=== PATIENT | female | born 1970 | race African-American/Black ===

== ENCOUNTER 2018-06-15 11:38 | Inpatient (IN) ==
[2018-06-15 12:41] LABS: Basophils % 0.3 % (0.0-0.8); Eosinophils # 0.1 10*3/uL (0.0-0.87); Eosinophils % 1.6 % (0.00-10.9); Hematocrit 36.4 VOL% (35.7-47.0); Hemoglobin 12.1 GM/DL (12.0-16.0); Immature Granulocytes % 0.5 %; Immature Granulocytes Absolute 0.04 #; Lymphocytes # 1.3 10*3/uL (1.4-4.0); Lymphocytes % 17.3 % (21.3-54.2); Mean Corpuscular HGB Conc 33.2 GM/DL (32-36); Mean Corpuscular Hemoglobin 26 PG (27-34); Mean Corpuscular Volume 77.9 FL (87-102); Mean Platelet Volume 12.1 FL (9.6-12.0); Monocytes # 0.7 10*3/uL (0.11-0.8); Monocytes % 9.6 % (1.7-12.7); Neutrophils # 5.1 10*3/uL (1.4-7.4); Neutrophils % 70.7 % (38.7-73.9); Platelet Count 198 T/CUMM (130-400); Red Blood Count 4.67 MC/CUMM (3.8-5.5); Red Cell Distribution Width 13.8 % (9.3-17.3); White Blood Count 7.3 T/CUMM (4-12)
[2018-06-15 13:37] LABS: Troponin I 0.097 NG/ML (0.00-0.045)
[2018-06-15 13:52] LABS: Albumin 3.4 G/DL (3.4-5.0); Bilirubin,Total 0.4 MG/DL (0.2-1.0); Calcium 9.3 MG/DL (8.5-10.1); Osmolality,Calculated 290.4 MOS/KG (273-304); Potassium 3.6 MMOL/L (3.5-5.1); Thyroid Stimulating Hormone 2.7 uIU/ml (0.358-3.74); Total Protein 8.4 G/DL (6.4-8.3)
[2018-06-15 16:53] LABS: Barbiturates Screen,Urine Negative (Negative); Benzodiazepines Screen,Urine Negative (Negative); Cannabinoid Screen,Urine Positive (Negative); Opiate Screen,Urine Negative (Negative); Phencyclidine Screen,Urine Negative (Negative)
[2018-06-16 04:43] LABS: Osmolality,Calculated 285.1 MOS/KG (273-304); Potassium 3.5 MMOL/L (3.5-5.1)
[2018-06-17 11:45] VITALS: BP 110/66
== END 2018-06-17 12:29 | disposition home or self-care (01) | DRG 201 ==
LOC: N.ED 11:38 → N.EDINP 15:15 → N.TELEN 16:08
PROVIDERS: ADMIT Internal Medicine Cardiovascular Disease; ATTEND Internal Medicine Cardiovascular Disease

== ENCOUNTER 2018-07-20 17:25 | Inpatient (IN) ==
[2018-07-20] MEDS ORDERED: SODIUM CHLORIDE 0.9% 1,000 ML IV STA (17:44)
[2018-07-20 18:32] LABS: Basophils % 0.3 % (0.0-0.8); Eosinophils # 0.1 10*3/uL (0.0-0.87); Eosinophils % 0.8 % (0.00-10.9); Hematocrit 34.6 VOL% (35.7-47.0); Hemoglobin 11.5 GM/DL (12.0-16.0); Immature Granulocytes % 0.4 %; Immature Granulocytes Absolute 0.03 #; Lymphocytes % 13.4 % (21.3-54.2); Mean Corpuscular HGB Conc 33.2 GM/DL (32-36); Mean Corpuscular Hemoglobin 26 PG (27-34); Mean Corpuscular Volume 78.1 FL (87-102); Mean Platelet Volume 11.7 FL (9.6-12.0); Monocytes # 0.7 10*3/uL (0.11-0.8); Neutrophils # 5.9 10*3/uL (1.4-7.4); Neutrophils % 76.1 % (38.7-73.9); Platelet Count 165 T/CUMM (130-400); Red Blood Count 4.43 MC/CUMM (3.8-5.5); Red Cell Distribution Width 13.5 % (9.3-17.3); White Blood Count 7.7 T/CUMM (4-12)
[2018-07-20 18:46] LABS: CKMB % 1.2 %
[2018-07-20 18:47] LABS: Troponin I 0.345 NG/ML (0.00-0.045)
[2018-07-20 18:49] LABS: INR 1.1; PT Patient Result 11.9 SECS; Partial Thromboplastin Time 24.1 SECS (0-40)
[2018-07-20 18:53] LABS: Alanine Aminotransferase 34 U/L (13-56); Albumin 2.6 G/DL (3.4-5.0); Alkaline Phosphatase 155 U/L (45-117); Aspartate Amino Transferase 28 U/L (0-37); Bilirubin,Total < 0.39 MG/DL (0.2-1.0); Blood Urea Nitrogen 15 MG/DL (7-18); Calcium 7.6 MG/DL (8.5-10.1); Glucose 405 MG/DL (74-106); Osmolality,Calculated 300.1 MOS/KG (273-304); Potassium 3.9 MMOL/L (3.5-5.1); Sodium 142 MMOL/L (136-145); Total Protein 5.9 G/DL (6.4-8.3)
[2018-07-20] MEDS ORDERED: INSULIN REGULAR 100 UNIT/ML SUBCUT STA (18:58)
[2018-07-20] MEDS ORDERED: METOPROLOL TARTRATE 5 MG/5 ML VIAL IV STA ×2 (19:15→19:37)
[2018-07-20] MEDS ORDERED: DEXTROSE 50% 25 GM/50 ML VIAL IV PRN ×2 (20:36)
[2018-07-20] MEDS ORDERED: NITROGLYCERIN SL 0.4 MG TABLET SL PRN (20:36)
[2018-07-20] MEDS ORDERED: CLORAZEPATE 7.5 MG TABLET PO PRN (20:36)
[2018-07-20] MEDS ORDERED: ACETAMINOPHEN 325 MG TABLET PO PRN (20:36)
[2018-07-20] MEDS ORDERED: ONDANSETRON 4 MG/2 ML VIAL IV PRN (20:36)
[2018-07-20] MEDS ORDERED: ZALEPLON 5 MG CAPSULE PO PRN (20:36)
[2018-07-20] MEDS ORDERED: GLUCAGON 1 MG VIAL IM PRN ×2 (20:36)
[2018-07-20] MEDS: INSULIN LISPRO 100 UNIT/ML SUBCUT SCH (21:17)
[2018-07-20] MEDS: FAMOTIDINE 20 MG TABLET PO SCH (21:26)
[2018-07-20] MEDS: PRAVASTATIN 40 MG TABLET PO SCH (21:26)
[2018-07-20] MEDS: CARVEDILOL 6.25 MG TABLET PO SCH (21:26)
[2018-07-20] MEDS: FUROSEMIDE 80 MG TABLET PO SCH (21:26)
[2018-07-20] MEDS: ASCORBIC ACID 500 MG TABLET PO SCH (21:27)
[2018-07-20] MEDS: ENOXAPARIN 40 MG/0.4 ML SYRINGE SUBCUT SCH (21:27)
[2018-07-20] MEDS: AMITRIPTYLINE 25 MG TABLET PO SCH (21:27)
[2018-07-20] MEDS: INSULIN GLARGINE 100 UNIT/ML SUBCUT SCH (21:28)
[2018-07-20] MEDS: SODIUM CHLORIDE 0.9% 1,000 ML IV SCH (21:55)
[2018-07-21 06:14] LABS: Basophils % 0.3 % (0.0-0.8); Eosinophils # 0.2 10*3/uL (0.0-0.87); Eosinophils % 2.2 % (0.00-10.9); Hematocrit 35.2 VOL% (35.7-47.0); Hemoglobin 11.6 GM/DL (12.0-16.0); Immature Granulocytes % 0.7 %; Immature Granulocytes Absolute 0.05 #; Lymphocytes # 1.5 10*3/uL (1.4-4.0); Lymphocytes % 22.4 % (21.3-54.2); Mean Corpuscular Hemoglobin 26 PG (27-34); Mean Corpuscular Volume 78.2 FL (87-102); Mean Platelet Volume 11.8 FL (9.6-12.0); Monocytes # 0.6 10*3/uL (0.11-0.8); Monocytes % 8.2 % (1.7-12.7); Neutrophils # 4.4 10*3/uL (1.4-7.4); Neutrophils % 66.2 % (38.7-73.9); Platelet Count 186 T/CUMM (130-400); Red Cell Distribution Width 13.8 % (9.3-17.3); White Blood Count 6.7 T/CUMM (4-12)
[2018-07-21 06:43] LABS: Calcium 9.4 MG/DL (8.5-10.1); Osmolality,Calculated 280.4 MOS/KG (273-304)
[2018-07-21 06:44] LABS: Troponin I 0.541 NG/ML (0.00-0.045)
[2018-07-21] MEDS: INSULIN LISPRO 100 UNIT/ML SUBCUT SCH ×4 (08:28→20:20)
[2018-07-21] MEDS: SPIRONOLACTONE 25 MG TABLET PO SCH (08:29)
[2018-07-21] MEDS: FAMOTIDINE 20 MG TABLET PO SCH ×2 (08:29→17:33)
[2018-07-21] MEDS: metOLazone 5 MG TABLET PO SCH (08:30)
[2018-07-21] MEDS: POTASSIUM CHLORIDE 20 MEQ TABLET PO SCH (08:30)
[2018-07-21] MEDS: ASCORBIC ACID 500 MG TABLET PO SCH ×2 (08:30→20:18)
[2018-07-21] MEDS: CLOPIDOGREL 75 MG TABLET PO SCH (08:30)
[2018-07-21] MEDS: CARVEDILOL 6.25 MG TABLET PO SCH (08:30)
[2018-07-21] MEDS: FUROSEMIDE 80 MG TABLET PO SCH ×2 (08:30→17:10)
[2018-07-21] MEDS: ASPIRIN EC 81 MG TABLET PO SCH (08:31)
[2018-07-21] MEDS: LOSARTAN 25 MG TABLET PO SCH (08:31)
[2018-07-21] MEDS: INSULIN GLARGINE 100 UNIT/ML SUBCUT SCH ×2 (08:34→20:21)
[2018-07-21] MEDS: MAGNESIUM OXIDE 400 MG TABLET PO SCH ×2 (09:57→20:17)
[2018-07-21] MEDS: SODIUM CHLORIDE 0.9% 1,000 ML IV SCH (13:00)
[2018-07-21] MEDS: CARVEDILOL 25 MG TABLET PO SCH (17:10)
[2018-07-21] MEDS: PRAVASTATIN 40 MG TABLET PO SCH (20:18)
[2018-07-21] MEDS: ENOXAPARIN 40 MG/0.4 ML SYRINGE SUBCUT SCH (20:19)
[2018-07-21] MEDS: AMITRIPTYLINE 25 MG TABLET PO SCH (20:19)
[2018-07-22] MEDS: SODIUM CHLORIDE 0.9% 1,000 ML IV SCH (05:02)
[2018-07-22 05:08] LABS: Basophils % 0.4 % (0.0-0.8); Eosinophils # 0.2 10*3/uL (0.0-0.87); Eosinophils % 3.4 % (0.00-10.9); Hematocrit 33.8 VOL% (35.7-47.0); Hemoglobin 11.4 GM/DL (12.0-16.0); Immature Granulocytes % 0.6 %; Immature Granulocytes Absolute 0.03 #; Lymphocytes # 1.7 10*3/uL (1.4-4.0); Lymphocytes % 31.7 % (21.3-54.2); Mean Corpuscular HGB Conc 33.7 GM/DL (32-36); Mean Corpuscular Hemoglobin 25 PG (27-34); Mean Corpuscular Volume 74.9 FL (87-102); Mean Platelet Volume 11.9 FL (9.6-12.0); Monocytes # 0.6 10*3/uL (0.11-0.8); Monocytes % 11.8 % (1.7-12.7); Neutrophils # 2.8 10*3/uL (1.4-7.4); Neutrophils % 52.1 % (38.7-73.9); Platelet Count 180 T/CUMM (130-400); Red Blood Count 4.51 MC/CUMM (3.8-5.5); Red Cell Distribution Width 13.9 % (9.3-17.3); White Blood Count 5.4 T/CUMM (4-12)
[2018-07-22 05:43] LABS: Calcium 8.5 MG/DL (8.5-10.1); Osmolality,Calculated 284.8 MOS/KG (273-304); Potassium 3.3 MMOL/L (3.5-5.1)
[2018-07-22] MEDS: INSULIN LISPRO 100 UNIT/ML SUBCUT SCH ×3 (09:17→15:30)
[2018-07-22] MEDS: INSULIN GLARGINE 100 UNIT/ML SUBCUT SCH (09:18)
[2018-07-22] MEDS: POTASSIUM CHLORIDE 20 MEQ TABLET PO SCH (09:19)
[2018-07-22] MEDS: ASCORBIC ACID 500 MG TABLET PO SCH (09:19)
[2018-07-22] MEDS: FAMOTIDINE 20 MG TABLET PO SCH ×2 (09:19→15:30)
[2018-07-22] MEDS: MAGNESIUM OXIDE 400 MG TABLET PO SCH (09:19)
[2018-07-22] MEDS: SPIRONOLACTONE 25 MG TABLET PO SCH (09:19)
[2018-07-22] MEDS: LOSARTAN 25 MG TABLET PO SCH (09:20)
[2018-07-22] MEDS: FUROSEMIDE 80 MG TABLET PO SCH ×2 (09:20→15:30)
[2018-07-22] MEDS: metOLazone 5 MG TABLET PO SCH (09:20)
[2018-07-22] MEDS: CARVEDILOL 25 MG TABLET PO SCH (09:20)
[2018-07-22] MEDS: CLOPIDOGREL 75 MG TABLET PO SCH (09:20)
[2018-07-22] MEDS: ASPIRIN EC 81 MG TABLET PO SCH (09:20)
[2018-07-22] MEDS ORDERED: MAGNESIUM SULF RIDER 4 GM in PREMIX 1 EACH IV ONE (11:00)
[2018-07-22] MEDS ORDERED: POTASSIUM CHLORIDE 20 MEQ TABLET PO ONE (11:00)
[2018-07-22 11:53] VITALS: BP 101/57
== END 2018-07-22 16:20 | disposition home or self-care (01) | DRG 201 ==
LOC: EDBD → EDUNIT# → N.ED 17:25 → N.EDINP 19:38 → SUATTDRO 19:38 → N.TELEN 20:12
PROVIDERS: ADMIT Internal Medicine Cardiovascular Disease; ATTEND Internal Medicine Cardiovascular Disease